=== PATIENT | male | born 1975 | race Caucasian/White ===

== ENCOUNTER 2019-11-30 10:51 | Emergency (ER) | payer OTHER ==
[2019-11-30] MEDS ORDERED: cloNIDine 0.2 MG TAB ONE (12:51)
[2019-11-30] MEDS ORDERED: predniSONE 50 MG TAB ONE (12:51)
[2019-11-30] MEDS ORDERED: cloNIDine 0.2 MG TAB PO ONE (12:52)
[2019-11-30] MEDS ORDERED: predniSONE 50 MG TAB PO ONE (12:53)
[2019-11-30] MEDS ORDERED: ALBUTEROL 2.5 MG/3 ML NEBU IH ONE (12:53)
[2019-11-30] MEDS ORDERED: IPRATROPIUM 0.02% NEBU 2.5 ML IH ONE (12:54)
--- NOTE | 2019-11-30 13:18 | XRay Report ---
CHEST 2 VIEWS INDICATION: SOB. COMPARISON: Moderate cardiac enlargement. FINDINGS: Support devices: None. Heart: Within normal limits. Lungs/Pleura: Mild increased interstitial markings without localized infiltrate. No significant ple ural effusion. IMPRESSION: Mild increased interstitial markings diffusely. This is likely a chronic finding or repr esents mild vascular congestion. Signer Name: Yonas Cook MD Signed: 11/30/2019 1:13 PM Workstation Name: [email or web address]
[2019-11-30 15:01] LABS: Basophils % (Auto) 0.5 % (0.0-1.8); Hematocrit 35.2 % (35.5-45.6); Hemoglobin 11.6 gm/dl (11.8-15.2); Lymphocytes # (Auto) 0.5 K/mm3 (1.2-5.4); Lymphocytes % (Auto) 16.9 % (13.4-35.0); Mean Corpuscular HGB Conc 33 % (32-34); Mean Corpuscular Volume 77 fl (84-94); Monocytes # (Auto) 0.1 K/mm3 (0.0-0.8); Monocytes % (Auto) 3.7 % (0.0-7.3); Platelet Count 160 K/mm3 (140-440); Red Blood Count 4.59 M/mm3 (3.65-5.03); Red Cell Distribution Width 15.6 % (13.2-15.2)
[2019-11-30 15:16] LABS: Calcium 8.1 mg/dL (8.4-10.2)
[2019-11-30 17:09] VITALS: BP 141/75
== END 2019-11-30 17:07 | disposition home or self-care (01) ==
LOC: ED 10:51
DX: J40 Bronchitis, not specified as acute or chronic (principal)
CPT/HCPCS: 36415; 71046; 80048; 83880; 85025; 99284; J7512